=== PATIENT | female | born 1970 | race Caucasian/White ===

== ENCOUNTER 2016-09-30 17:44 | Emergency (ER) | payer BC ==
[2016-09-30 18:03] VITALS: BP 134/74
--- NOTE | 2016-09-30 18:35 | UC ---
Complaint Female HPI - HPI Summary HPI Summary: pt presents with c/o of urinary frequency and labia "itching" denies vaginal discharge or exposure to STD's c/o abdominal bloating and occasional constipation - History Of Current Complaint Chief Complaint: UCGU Stated Complaint: URINARY Time Seen by Provider: 09/30/16 18:10 Hx Obtained From: Patient Hx Last Menstrual Period: 09/17/16 ?: No Onset/Duration: Gradual Onset Timing: Intermittent Severity Initially: Mild Severity Currently: None Aggravating Factor(s): Nothing - Allergies/Home Medications Allergies/Adverse Reactions: Allergies Allergy/AdvReac Type Severity Reaction Status Date / Time Ciprofloxacin [From Cipro] Allergy Mild Heart Verified 09/30/16 17:55 palpitations Home Medications: Home Medications Metoprolol Succinate XL TAB* [Toprol XL TAB*] 1.5 tab PO BEDTIME 09/30/16 [ History Confirmed 09/30/16] PMH/Surg Hx/FS Hx/Imm Hx Previously Healthy: Yes Cardiovascular History: Other - tachycardia Other Cardiovascular History: tachycardia - Surgical History Surgical History: Yes Surgery Procedure, Year, and Place: ASD repair 1975 [facility] - Family History Known Family History: Positive: Other - [facility] for hysterectomy - Social History Lives: With Family Alcohol Use: Occasionally Substance Use Type: None Smoking Status (MU): Never Smoked Tobacco Review of Systems Constitutional: Negative Skin: Other - puritic labia majora Eyes: Negative ENT: Negative Respiratory: Negative Cardiovascular: Negative Gastrointestinal: Negative Genitourinary: Frequency, Other - perimenopausal Motor: Negative Neurovascular: Negative Musculoskeletal: Negative Neurological: Negative Psychological: Negative All Other Systems Reviewed And Are Negative: Yes Physical Exam Triage Information Reviewed: Yes Appearance: Well-Appearing Vital Signs: Initial Vital Signs Temp 98.8 F 09/30/16 17:57 Pulse 71 09/30/16 17:57 Resp 16 09/30/16 17:57 BP 134/74 09/30/16 17:57 Pulse Ox 100 09/30/16 17:57 Eye Exam: Normal Neck exam: Normal Respiratory Exam: Normal Abdominal Exam: Other Abdomen Description: Positive: Other: - "bloated" Musculoskeletal Exam: Normal Neurological Exam: Normal Psychological Exam: Normal Skin Exam: Normal Complaint Female Dx - Course Course Of Treatment: I discussed with the pt the need to follow up with her geology scientist provider carroll. Pt verbalized understanding and agreed to plan of care - Differential Dx/Diagnosis Differential Diagnosis/HQI/PQRI: Other - reid menopausal Provider Diagnoses: urinary frequency. vaginitis Discharge - Discharge Plan Condition: Stable Disposition: HOME Patient Education Materials: Vaginitis (ED) Referrals: Aranza Alba MD [Primary Care Provider] - As Soon As Possible
== END 2016-09-30 19:05 | disposition home or self-care (01) ==
LOC: UCCORT 17:44
DX: R35.0 Frequency of micturition (principal); N76.0 Acute vaginitis
CPT/HCPCS: 81003; 87480; 87510; 87660; 99211; G0463

== ENCOUNTER 2017-04-01 09:00 | Emergency (ER) | payer BC ==
[2017-04-01 09:11] VITALS: BP 113/78
--- NOTE | 2017-04-01 09:18 | UC ---
Throat Pain/Nasal Kali HPI - HPI Summary HPI Summary: 47 year old female with cough. Bilateral ear pain, sore throat, hoarse/loss of voice, "green" productive cough, and chest congestion for three to four days. Symptoms were preceded by NVD and cold symptoms. No CP or SOB. 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 PCP Parth. [ End ] - History of Current Complaint Chief Complaint: UCGeneralIllness Stated Complaint: EAR PAIN,CONGESTION Time Seen by Provider: 04/01/17 09:13 Hx Obtained From: Patient Hx Last Menstrual Period: 09/17/16 ?: No Onset/Duration: Gradual Onset Severity: Moderate Cough: Productive Associated Signs & Symptoms: Positive: Sinus Discomfort, Nasal Discharge - Allergies/Home Medications Allergies/Adverse Reactions: Allergies Allergy/AdvReac Type Severity Reaction Status Date / Time Ciprofloxacin [From Cipro] Allergy Mild Heart Verified 04/01/17 09:07 palpitations PMH/Surg Hx/FS Hx/Imm Hx Previously Healthy: Yes Cardiovascular History: Hypertension - Surgical History Surgical History: Yes Surgery Procedure, Year, and Place: ASD Repair, 1975, [place] - Family History Known Family History: Positive: Other - [facility] for hysterectomy - Social History Occupation: Employed Full-time Lives: With Family Alcohol Use: Rare Substance Use Type: None Smoking Status (MU): Never Smoked Tobacco - Immunization History Most Recent Influenza Vaccination: January 2017 Review of Systems Constitutional: Chills, Fatigue ENT: Sore Throat, Ear Ache, Nasal Discharge, Sinus Congestion, Sinus Pain/ Tenderness Respiratory: Cough Is Patient Immunocompromised?: No All Other Systems Reviewed And Are Negative: Yes Physical Exam Triage Information Reviewed: Yes Appearance: Well-Appearing, No Pain Distress, Well-Nourished Vital Signs: Initial Vital Signs Temp 98.6 F 04/01/17 09:05 Pulse 60 04/01/17 09:05 Resp 16 04/01/17 09:05 BP 113/78 04/01/17 09:05 Pulse Ox 99 04/01/17 09:05 Vital Signs Reviewed: Yes Eye Exam: Normal ENT: Positive: Nasal congestion, Nasal drainage, TM dull, Sinus tenderness - frontal b/l Neck exam: Normal Neck: Positive: 1 Respiratory Exam: Normal Cardiovascular Exam: Normal Musculoskeletal Exam: Normal Neurological Exam: Normal Psychological Exam: Normal Skin Exam: Normal Throat Pain/Nasal Course/Dx - Course Course Of Treatment: viral at this time treat with supportive care, if sx worsen or persist then can start antibiotics but aware of SE - Differential Dx/Diagnosis Differential Diagnosis/HQI/PQRI: Mononucleosis, Otitis Media, Pharyngitis, Sinusitis, Tonsillitis, URI Provider Diagnoses: SInusitis Discharge - Discharge Plan Condition: Good Disposition: HOME Prescriptions: Amoxicillin/Clavulanate TAB* [Augmentin TAB 875*] 875 mg PO BID #20 tab Patient Education Materials: Sinusitis (ED) Forms: *Work Release Referrals: Aranza Alba MD [Primary Care Provider] - 4 Days Additional Instructions: As we discussed please use flonase, claritin and netti pot for the next few days and if symptoms worsen in the next 3-4 days then at that time start antibiotics
== END 2017-04-01 09:45 | disposition home or self-care (01) ==
LOC: UCCORT 09:00
DX: J32.9 Chronic sinusitis, unspecified (principal); I10 Essential (primary) hypertension; Z88.1 Allergy status to other antibiotic agents
CPT/HCPCS: 99212; G0463

== ENCOUNTER 2017-08-31 12:00 | Emergency (ER) | payer BC ==
[2017-08-31 13:28] VITALS: BP 128/70
--- NOTE | 2017-08-31 13:37 | UC ---
UC General HPI - HPI Summary HPI Summary: pt is c/o sinus pain, congestion and now purulent drainage. no relief with nasal flush. ill for over a week, - History of Current Complaint Chief Complaint: UCGeneralIllness Stated Complaint: SINUS COMP Time Seen by Provider: 08/31/17 13:31 Hx Obtained From: Patient Hx Last Menstrual Period: 08/16/17 Onset/Duration: Gradual Onset Timing: Constant Pain Intensity: 5 Aggravating: nothing Alleviating: nothing Associated Signs & Symptoms: Positive: Headache. Negative: Fever - Allergy/Home Medications Allergies/Adverse Reactions: Allergies Allergy/AdvReac Type Severity Reaction Status Date / Time ciprofloxacin Allergy Palpitation Verified 08/31/17 13:26 s Home Medications: Home Medications Acetaminophen TAB* [Tylenol TAB*] 325 mg PO Q4H PRN 08/31/17 [History Confirmed 08/31/17] Ibuprofen TAB* [Advil TAB*] 400 mg PO Q6H PRN 08/31/17 [History Confirmed ] PMH/Surg Hx/FS Hx/Imm Hx - Additional Past Medical History Additional PMH: sinusitis, svt - Surgical History Surgical History: Yes Surgery Procedure, Year, and Place: ASD Repair, 1975, [place]. Cardiac ablation 2009 - Family History Known Family History: Positive: Other - [facility] for hysterectomy - Social History Occupation: Employed Full-time Lives: With Family Alcohol Use: Rare Substance Use Type: None Smoking Status (MU): Former Smoker Have You Smoked in the Last Year: No - Immunization History Most Recent Influenza Vaccination: January 2017 Vaccination Up to Date: Yes Review of Systems Constitutional: Negative Skin: Negative Eyes: Negative ENT: Nasal Discharge, Sinus Congestion, Sinus Pain/Tenderness Respiratory: Negative Cardiovascular: Negative Gastrointestinal: Negative Genitourinary: Negative Motor: Negative Neurovascular: Negative Musculoskeletal: Negative Neurological: Negative Psychological: Negative Is Patient Immunocompromised?: No All Other Systems Reviewed And Are Negative: Yes Physical Exam Triage Information Reviewed: Yes Appearance: Well-Appearing Vital Signs: Initial Vital Signs Temp 95.9 F 08/31/17 13:19 Pulse 73 08/31/17 13:19 Resp 17 08/31/17 13:19 BP 128/70 08/31/17 13:19 Pulse Ox 99 08/31/17 13:19 Vital Signs Reviewed: Yes Eyes: Positive: Conjunctiva Clear ENT: Positive: Pharynx normal, Nasal congestion, TMs normal, Sinus tenderness. Negative: Nasal drainage Neck: Positive: Supple, Nontender, No Lymphadenopathy Respiratory: Positive: Lungs clear, Normal breath sounds Cardiovascular: Positive: RRR, No Murmur Abdomen Description: Positive: Nontender, No Organomegaly, Soft Bowel Sounds: Positive: Present Musculoskeletal: Positive: ROM Intact Neurological: Positive: Alert Psychological: Positive: Age Appropriate Behavior Skin Exam: Normal Course/Dx - Differential Dx - Multi-Symptom Provider Diagnoses: sinusitis Discharge - Sign-Out/Discharge Documenting (check all that apply): Discharge/Admit/Transfer - Discharge Plan Condition: Stable Disposition: HOME Prescriptions: Amoxicillin/Clavulanate TAB* [Augmentin TAB 875*] 875 mg PO BID #20 tab Patient Education Materials: Sinusitis (ED) Referrals: Aranza Alba MD [Primary Care Provider] - 7 Days - Billing Disposition and Condition Condition: STABLE Disposition: HOME
== END 2017-08-31 13:46 | disposition home or self-care (01) ==
LOC: UCCORT 12:00
DX: J32.9 Chronic sinusitis, unspecified (principal); Z88.1 Allergy status to other antibiotic agents; Z87.891 Personal history of nicotine dependence
CPT/HCPCS: 99212; G0463

== ENCOUNTER 2019-07-14 07:40 | Day surgery (SDC) | payer BC ==
--- NOTE | 2019-07-06 13:15 | HP ---
Amended report to enter cosigning physician. CC: Dr. Nelly Chavarria; Dr. Cristy Brewster* ADMISSION HISTORY AND PHYSICAL: DATE OF ADMISSION: 07/14/19 ATTENDING SURGEON: Dr. Donna Costa* (MELCHOR Santana dictating). CHIEF COMPLAINT: Symptomatic cholelithiasis. HISTORY OF PRESENT ILLNESS: This is a 49-year-old generally healthy female who had an attack of right upper quadrant abdominal pain in late April 2019. This was associated with nausea and diarrhea. She did not have any vomiting. She was traveling in [place] at that time and her initial workup at that time was negative. This was preceded by chronic symptoms of right upper quadrant and right shoulder pain sometimes related to diet (i.e., coffee and high-fat foods). She self-imposed more severe dietary restrictions after her attack in April with some improvement, though she still notices ongoing discomfort in the right upper quadrant that is sometimes exacerbated by eating, even low-fat foods. She did note having life enrichment assistant colored stools during the time around her attack in April and at times also dark urine, though these have not recurred particularly since her dietary restrictions. She did have lab work done on 05/22/19 showing normal CBC and liver function tests. An ultrasound of the gallbladder was done on 05/29/19 showing some fatty liver changes. There were also noted to be multiple gallstones measuring up to 1.4 cm , but without gallbladder wall thickening or pericholecystic fluid. The common bile duct was normal. She was seen by Dr. Costa on 06/06/19. Her history and workup were reviewed and Dr. Costa felt that her symptoms were consistent with symptomatic cholelithiasis. Surgery was recommended. She was also referred for cardiology clearance with Dr. Brewster (see attached note). The patient is aware of the indications for surgery, the risks, benefits, and alternatives as well as the expected perioperative course. She would like to proceed as scheduled with laparoscopic cholecystectomy. PAST MEDICAL HISTORY: Paroxysmal supraventricular tachycardia, status post ablation in 2009 (with occasional breakthrough tachycardia; see separate note from Dr. Brewster). She is also status post open heart surgery as a child for repair of an ASD. No other significant medical problems other than mild obesity. She specifically denies history of hypertension, diabetes, asthma, other digestive problems, bleeding or clotting disorders. CURRENT MEDICATIONS: She takes no prescription medications. She does take supplemental vitamin D and vitamin C in usual doses. DRUG ALLERGIES: None. (She had experienced anaphylaxis secondary to BALSAMIC VINEGAR). FAMILY HISTORY: Positive for gallbladder disease in her mother. Family history is negative for anesthesia problems, bleeding or clotting disorders. SOCIAL HISTORY: The patient is . She has 4 grown children. 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 She smoked socially in college, but has not smoked in the past 25 to 30 years. She denies use of alcohol or recreational drugs. REVIEW OF SYSTEMS: General: No recent constitutional symptoms or acute illnesses other than described in the HPI. She does note a 15-pound weight loss over the past couple of months related to her self-imposed dietary restrictions. HEENT: No problems reported. Cardiovascular: As above. No additions. Occasional heart murmur noted. Respiratory: No chronic cough or shortness of breath. GI: As above per HPI. I did not ask her about colonoscopy. : No problems reported. 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 Endocrine: No diabetes or thyroid dysfunction. Musculoskeletal: Right shoulder pain, which seems to come in association with right upper quadrant abdominal pain. PHYSICAL EXAMINATION GENERAL: Well-nourished, mildly obese female, in no acute distress. VITAL SIGNS: Height 65 inches, weight 184 pounds, BMI 30.6. Temperature 97.8, blood pressure 104/76, pulse 84. HEENT: Pupils are equal, round, and reactive. EOMs intact. No conjunctival pallor or scleral icterus. Oropharynx: Mucous membranes moist. Teeth in good repair. No intraoral lesions. NECK: No lymphadenopathy, thyromegaly, or masses. LUNGS: Clear to auscultation. No rales or wheezes. HEART: Regular rate and rhythm. No murmur noted. BREASTS: Not examined. ABDOMEN: Soft, nontender to palpation. No palpable masses or organomegaly. GENITALIA: Not done. RECTAL: Not done. BACK: No spinous process or CVA tenderness. EXTREMITIES: No edema. NEUROLOGICAL: Grossly intact. SKIN: Warm and dry. No suspicious rashes or lesions. IMPRESSION: Symptomatic cholelithiasis. PLAN: Laparoscopic cholecystectomy. LILIBETH BASS, [place] [id number]/[facility] #: [id number] [facility] HOSPITALGhazala
[~2019-07-14 07:40] MED LIST: Acetaminophen TAB* 325 MG PO ONE; Buffered Lidocaine 1% SYRIN* 1 ML/SYRINGE INTRADERM ONE; Famotidine IV* 10 MG/ML 2 ML (20 mg) IV SLOW PU ONE; Lactated Ringers 1000 ML Bag* 1,000 ML IV SCH
[2019-07-14] MEDS ORDERED: fentaNYL* 50 MCG/ML 2 ML VIAL (100 MCG VIAL) ONE ×2 (08:11→09:36)
[2019-07-14] MEDS ORDERED: Midazolam* 1 MG/ML 5 ML VIAL (5 MG) ONE (08:11)
[2019-07-14] MEDS ORDERED: ceFAZolin 2 GM PREMIX in ORs 2 GM/50 ML BAG ONE (08:23)
[2019-07-14] MEDS ORDERED: Famotidine IV* 10 MG/ML 2 ML (20 mg) ONE (08:24)
[2019-07-14] MEDS ORDERED: Bupivacaine 0.25% SDV* 30 ML ONE (08:45)
[2019-07-14] MEDS ORDERED: Rocuronium* 10 MG/ML VIAL ONE (09:17)
[2019-07-14] MEDS ORDERED: Acetaminophen IV 1GM/100ML * 100 ML ONE (09:43)
[2019-07-14] MEDS ORDERED: Ketorolac INJ* 30 MG/ML 1 ML VIAL ONE (09:43)
[2019-07-14] MEDS ORDERED: Propofol* 10 MG/ML 20 ML BTL ONE ×2 (09:43→10:26)
[2019-07-14] MEDS ORDERED: Succinylcholine* 20 MG/ML 10 ML VIAL ONE (09:43)
[2019-07-14] MEDS ORDERED: Ondansetron INJ* 2 MG/ML VIAL ONE (09:43)
[2019-07-14] MEDS ORDERED: Lidocaine 2% PF * 5 ML VIAL ONE (09:43)
[2019-07-14] MEDS ORDERED: DiMENhydriNATE IV* 50 MG/ML VIAL ONE (09:43)
[2019-07-14] MEDS ORDERED: Dexamethasone IV* 4 MG/ML 1 ML (4 MG) ONE (09:43)
[2019-07-14] MEDS ORDERED: Naloxone* 0.4 MG/ML 1 ML VIAL IV PRN (10:13)
[2019-07-14] MEDS ORDERED: DiMENhydriNATE IV* 50 MG/ML VIAL IV PUSH PRN (10:13)
[2019-07-14] MEDS ORDERED: HYDROmorphone INJ1* 1 MG/ML SYRINGE IV PRN (10:13)
[2019-07-14] MEDS ORDERED: HYDROmorphone INJ1* 1 MG/ML SYRINGE ONE (10:18)
[2019-07-14] MEDS ORDERED: Sugammadex * 200 MG/2 ML VIAL IV PUSH ONE (10:21)
--- NOTE | 2019-07-14 11:00 | BRIEFOPN ---
Brief Operative/Procedure Note - Operation Details Pre-Op Diagnosis: Symptomatic cholelithiasis Post-Op Diagnosis: Same Procedures: Laparoscopic cholecystectomy Surgeon(s)/Proceduralists: Julissa. Oven Press Tender: Nallely Guzman NP Anesthesia: General. Dr Abad Estimated Blood Loss: Minimal Findings: Inflamed gallbladder with thickened wall Specimen(s)/Culture(s) Description: Gallbladder Complications: None. No drains.
[2019-07-14 11:52] VITALS: BP 134/72
--- NOTE | 2019-07-15 00:15 | OP ---
CC: Nelly Chavarria MD * DATE OF OPERATION: 07/14/19 - SDS DATE OF : 66 SURGEON: Donna Costa MD WIND TURBINE ELECTRICAL ENGINEER: Carolina Guzman NP ANESTHESIOLOGIST: Dr. Abad. ANESTHESIA: General. PRE-OP DIAGNOSIS: Symptomatic cholelithiasis. POST-OP DIAGNOSIS: Symptomatic cholelithiasis. OPERATIVE PROCEDURE: Laparoscopic cholecystectomy. FINDINGS: Inflamed gallbladder with thickened wall. INDICATIONS: Caroline Basurto is a 49-year-old woman who was seen in clinic for right upper quadrant abdominal pain and nausea, which was worse after eating. Ultrasound showed gallstones. I discussed with the patient that taking the gallbladder out may not resolve her symptoms, but her clinical picture does fit with symptomatic cholelithiasis. Risks were discussed including, but not limited to bleeding, infection, common bile duct injury, bowel injury. She agreed to proceed with surgery. DESCRIPTION OF PROCEDURE: The patient was brought to the OR and placed in the supine position on the OR table. SCDs were placed. The patient was warmed. Cefazolin 2 g was given. General anesthesia was administered. The abdomen was prepped and draped in the usual sterile fashion. A time-out was called confirming the patient's name, date of , and procedure. A supraumbilical curvilinear incision was made with a 15-blade scalpel. The incision was taken down to the fascia with blunt dissection. The fascia was elevated with 2 Sanya clamps and then incised transversely with a 15 blade. The peritoneum was grasped with 2 Celeste clamps. The peritoneum was opened with Metzenbaum scissors. A 12 mm trocar was inserted into the abdomen. Pneumoperitoneum to 15 mmHg was achieved. The camera was placed into the port. A 5 mm trocar was placed under direct visualization in the epigastrium. Another 5 mm trocar was placed in the lateral right upper quadrant and a third 5 mm trocar was placed in the right upper quadrant at the midclavicular line. Both were placed under direct visualization. The dome of the gallbladder was elevated cephalad. The peritoneum and omentum was dissected off of the gallbladder wall using blunt dissection and electrocautery. There was a lymph node overlying the cystic duct which was dissected off of the gallbladder wall and cystic duct. The peritoneum over the cystic duct was dissected away using electrocautery. The liver could be seen behind the gallbladder and the cystic duct. The duct was the only structure coming off of the gallbladder. The cystic duct was clipped and divided sharply between the 2 clips. The cystic artery was not seen. The gallbladder was then taken off of the liver using electrocautery. The gallbladder was placed into a specimen bag and removed from the abdomen. The liver bed was examined and there was good hemostasis. The cystic duct stump was examined and the clips were in good position. The 5 mm trocars were removed under direct visualization. The 12 mm trocar was removed. The fascia was closed with interrupted 0 Vicryl sutures. Marcaine 0.25% was injected into all of the incisions. The skin at the umbilical incision was closed with a running 4-0 Monocryl. The 5 mm trocar sites was closed with interrupted 4-0 Monocryl. The Steri-Strips were placed over all the incisions. Needle and sponge counts were correct. The patient was extubated and brought to Recovery in stable condition. [id number]/[facility] #: [id number] [facility]ENTERGh[facility]ala
== END 2019-07-14 11:54 | disposition home or self-care (01) ==
LOC: OR 07:40
PROVIDERS: ATTEND Surgery Surgical Critical Care
DX: K80.10 Calculus of gallbladder with chronic cholecystitis without obstruction (principal); I47.1 Supraventricular tachycardia; Z87.891 Personal history of nicotine dependence; Z88.1 Allergy status to other antibiotic agents; Z91.018 Allergy to other foods
CPT/HCPCS: 81025; 88304; J0330; J0690; J1100; J1170; J1240; J1885; J2250; J2405; J2704; J3010; J3490

== ENCOUNTER 2019-07-17 09:02 | Emergency (ER) | payer BC ==
--- OUTSIDE RECORDS SUMMARY | 2019-07-17 09:27 | XMS REPORT | Continuity of Care Document ---
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 Onset: 06/01/2014 Ostium secundum type atrial septal defect Cristy Brewster M.D. Onset: 2014 Anaphylaxis Nelly Chavarria M.D., FACP Onset: 05/18/2019 Social History Type Date Description Comments Sex Unknown ETOH Use Occasionally consumes wine Tobacco Use Start: Unknown End: Patient is a former social smoker in Unknown smoker college Recreational Drug Use Denies Drug Use Smoking Status Reviewed: 06/06/19 Patient is a former social smoker in smoker college Exercise Type/Frequency Exercises sporadically walking in summer time Allergies, Adverse Reactions, Alerts Active Allergies Reaction Severity Comments Date NKDA 10/09/2013 Balsamic Vinegar Anaphylaxis 06/06/2019 Medications Active Medications SIG Qnty Indications Ordering Provider Date Tylenol as needed for Unknown headache Pepcid take one Unknown 20mg Tablets capsule/tablet daily by mouth prn Vitamin D (500 units) daily Unknown 1000Unit Tablets Vitamin C 1 by mouth every Unknown 1000mg day Tablets Immunizations Description No Information Available Vital Signs Date Vital Result Comment 06/06/2019 12:55pm Height 65 inches 5'5" Weight 189.00 lb Heart Rate 72 /min BP Systolic Sitting 102 mmHg BP Diastolic Sitting 76 mmHg Respiratory Rate 16 /min Body Temperature 97.8 F BMI (Body Mass Index) 31.4 kg/m2 05/18/2019 2:32pm Height 65 inches 5'5" Weight 189.00 lb Heart Rate 86 /min BP Systolic Sitting 134 mmHg BP Diastolic Sitting 85 mmHg O2 % BldC Oximetry 98 % BMI (Body Mass Index) 31.4 kg/m2 Results Test Acquired Date Facility Test Result H/L Range Note Lipid Profile 05/22/2019 [facility] Triglycerides 100 mg/dL 1 (Trig/Chol/HDL) [place] [address] [phone] Cholesterol 149 mg/dL 2 HDL Cholesterol 48.2 mg/dL 3 LDL Cholesterol 81 mg/dL 4 Comp Metabolic 05/22/2019 [facility] Sodium 139 mmol/L Normal 135-145 [place] [address] [phone] Potassium 3.9 mmol/L Normal 3.5-5.0 Chloride 105 mmol/L Normal 101-111 Co2 Carbon Dioxide 26 mmol/L Normal 22-32 Anion Gap 8 mmol/L Normal 2-11 Glucose 87 mg/dL Normal 70-100 Blood Urea Nitrogen 8 mg/dL Normal 6-24 Creatinine 0.83 mg/dL Normal 0.51-0.95 BUN/Creatinine Ratio 9.6 Normal 8-20 Calcium 8.9 mg/dL Normal 8.6-10.3 Total Protein 6.4 g/dL Normal 6.4-8.9 Albumin 4.0 g/dL Normal 3.2-5.2 Globulin 2.4 g/dL Normal 2-4 Albumin/Globulin Ratio 1.7 Normal 1-3 Total Bilirubin 0.50 mg/dL Normal 0.2-1.0 Alkaline Phosphatase 50 U/L Normal 34-104 Alt 19 U/L Normal 7-52 Ast 18 U/L Normal 13-39 Egfr Non- 72.5 >60 Egfr 87.7 >60 5 Laboratory 05/22/2019 [facility] TSH (Thyroid 2.94 Normal 0.34 -5.60 6 test finding Stim Horm) mcIU/[place] [address] [phone] CBC Auto Diff 05/22/2019 [facility] White Blood 5.6 10^3/uL Normal 3.5-10.8 [place] [address] [phone] Red Blood Count 4.64 10^6/uL Normal 3.70-4.87 Hemoglobin 14.5 g/dL Normal 12.0-16.0 Hematocrit 41 % Normal 35-47 Mean Corpuscular Volume 89 fL Normal 80-97 Mean Corpuscular Hemoglobin 31 pg Normal 27-31 Mean Corpuscular HGB Conc 35 g/dL Normal 31-36 Red Cell Distribution Width 14 % Normal 10-15 Platelet Count 333 10^3/uL Normal 150-450 Mean Platelet Volume 9.0 fL Normal 7.4-10.4 Abs Neutrophils 3.6 10^3/uL Normal 1.5-7.7 Abs Lymphocytes 1.4 10^3/uL Normal 1.0-4.8 Abs Monocytes 0.5 10^3/uL Normal 0-0.8 Abs Eosinophils 0.1 10^3/uL Normal 0-0.6 Abs Basophils 0.1 10^3/uL Normal 0-0.2 Abs Nucleated RBC 0.0 10^3/uL Granulocyte % 63.7 % Lymphocyte % 24.7 % Monocyte % 8.4 % Eosinophil % 1.8 % Basophil % 1.4 % Nucleated Red Blood Cells % 0.2 1 Desirable: <150 Borderline High: 150-199 High: 200-499 Very High: >500 2 Desirable: <200 Borderline High: 200-239 High: >239 3 Low: <40 Desirable: 40-60 High: >60 4 Desirable: <100 Near Optimal: 100-129 Borderline High: 130-159 High: 160-189 Very High: >189 5 Because ethnic data is not always readily available, this report includes an eGFR for both -Americans and non- Americans. The National Kidney Disease Education Program (NKDEP) does not endorse the use of the MDRD equation for patients that are not between the ages of 18 and 70, are , have extremes of body size, muscle mass, or nutritional status, or are non- or non-. According to the National Kidney Foundation, irrespective of diagnosis, the stage of the disease is based on the level of kidney function: Stage Description GFR(mL/min/1.73 m(2)) 1 Kidney damage with normal or decreased GFR 90 2 Kidney damage with mild decrease in GFR 60-89 3 Moderate decrease in GFR 30-59 4 Severe decrease in GFR 15-29 5 Kidney failure <15 (or dialysis) 6 FASTING 10 HOUR Procedures Description No Information Available Medical Devices Description No Information Available Encounters Type Date Location Provider Dx Diagnosis Office Visit 05/18/2019 [facility] Nelly Aura, Z00.00 Encntr for general 2:30p Medicine - Mjob Amy, FACP adult medical exam w/o abnormal findings N95.1 Menopausal and female climacteric states Z87.892 Personal history of anaphylaxis I47.1 Supraventricular tachycardia Z13.220 Encounter for screening for lipoid disorders R68.81 Early satiety R63.4 Abnormal weight loss Office Visit 12/30/2018 [place] Cristy Brewster, I47.1 Supraventricular 1:10p [facility] tachycardia [employer] Q21.1 Atrial septal defect T78.00xD Anaphylactic reaction due to unspecified food, subs encntr Assessments Date Code Description Provider 06/06/2019 K80.20 Calculus of gallbladder without Donna Costa MD cholecystitis without obstruction 05/18/2019 Z00.00 Encounter for general adult medical Nelly Chavarria M.D., FACP examination without abnormal findings 05/18/2019 N95.1 Menopausal and female climacteric states Nelly Chavarria M.D. , FACP 05/18/2019 Z87.892 Personal history of anaphylaxis Nelly Chavarria M.D., FACP 05/18/2019 I47.1 Supraventricular tachycardia Nelly Chavarria M.D., FACP 05/18/2019 Z13.220 Encounter for screening for lipoid Nelly Chavarria M.D., FACP disorders 05/18/2019 R68.81 Early satiety Nelly Chavarria M.D., FACP 05/18/2019 R63.4 Abnormal weight loss Nelly Chavarria M.D., FACP 12/30/2018 I47.1 Supraventricular tachycardia Cristy Brewster M.D. 12/30/2018 Q21.1 Atrial septal defect Cristy Brewster M.D. 12/30/2018 T78.00xD Anaphylactic reaction due to unspecified Cristy Brewster M.D. food, subsequent encounter Plan of Treatment Future Appointment(s):07/10/2019 8:30 am - Nelly Chavarria M.D., FACP at [facility] Internal Medicine - [facility]cm[facility]06/06/2019 - Donna Costa MDK80.20 Calculus of gallbladder without cholecystitis without obstructionReferral:Cristy Brewster MD , Cardiovsclr DiseaseInstructions:See Dr Brewster with cardiology for medical clearance. Will schedule surgery after cardiology appointment. Avoid foods that aggravate symptoms. Call the clinic or go to the emergency room if you developsevere pain or fevers/chills. Functional Status Description No Information Available Mental Status Description No Information Available Referrals Refer to Reason for Referral Status Appt Date Cristy Brewster MD Pre-op for lap cholecystectomy. H/o SVT. Created [address] [place] [address] [phone] Mary Larsen MD atypical GI symptoms, sono shows cholelithiasis. Created [address] [place], [place] [phone] Yany Thrasher M.D. screening colonoscopy and new symptoms of Sent early satiety [address] [place] [address] [phone]
--- OUTSIDE RECORDS SUMMARY | 2019-07-17 09:27 | XMS REPORT | Continuity of Care Document ---
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 Onset: 06/01/2014 Ostium secundum type atrial septal defect Cristy Brewster M.D. Onset: 2014 Anaphylaxis Nelly Chavarria M.D., FACP Onset: 05/18/2019 Social History Type Date Description Comments Sex Unknown ETOH Use Denies alcohol use Tobacco Use Start: Unknown End: Patient is a former social smoker in Unknown smoker college Recreational Drug Use Denies Drug Use Smoking Status Reviewed: 07/06/19 Patient is a former social smoker in smoker college Exercise Type/Frequency Exercises sporadically walking in summer time Allergies, Adverse Reactions, Alerts Active Allergies Reaction Severity Comments Date NKDA 10/09/2013 Balsamic Vinegar Anaphylaxis 06/06/2019 Medications Active Medications SIG Qnty Indications Ordering Provider Date [address] 1 tablet by mouth 6tabs K80.20 Martinez S. 07/06/2019 5-325mg Tablets every 4-6 hours as MD Froylan needed for moderately severe pain Tylenol as needed for Unknown headache Vitamin D (500 units) daily Unknown 1000Unit Tablets Vitamin C 1 by mouth every Unknown 1000mg day Tablets Immunizations Description No Information Available Vital Signs Date Vital Result Comment 07/06/2019 10:30am Height 65 inches 5'5" Weight 184.00 lb Heart Rate 84 /min BP Systolic Sitting 104 mmHg BP Diastolic Sitting 76 mmHg Respiratory Rate 16 /min Body Temperature 97.8 F BMI (Body Mass Index) 30.6 kg/m2 07/04/2019 11:48am Height 65 inches 5'5" Weight 184.00 lb without shoes Heart Rate 73 /min BP Systolic Sitting 108 mmHg LA BP Diastolic Sitting 78 mmHg LA BP Systolic Standing 102 mmHg LA BP Diastolic Standing 74 mmHg LA BMI (Body Mass Index) 30.6 kg/m2 Ejection Fraction 66% Echo 12/13/12 Results Test Acquired Date Facility Test Result H/L Range Note Lipid Profile 05/22/2019 [facility] Triglycerides 100 mg/dL 1 (Trig/Chol/HDL) [address] [place] [address] [phone] Cholesterol 149 mg/dL 2 HDL Cholesterol 48.2 mg/dL 3 LDL Cholesterol 81 mg/dL 4 Comp Metabolic 05/22/2019 [facility] Sodium 139 mmol/L Normal 135-[address] [place] [address] [phone] Potassium 3.9 mmol/L Normal 3.5-5.0 Chloride 105 [...] >60 Egfr 87.7 >60 5 Laboratory 05/22/2019 [facility] TSH (Thyroid 2.94 Normal 0.34 -5.60 6 test finding [address] Stim Horm) mcIU/[place] [address] [phone] CBC Auto Diff 05/22/2019 [facility] White Blood 5.6 10^3/uL Normal 3.5-10.[address] [place] [address] [phone] Red Blood Count 4.64 10^6/uL Normal 3.70-4.87 [...] (or dialysis) 6 FASTING 10 HOUR Procedures Date Code Description Status 07/04/2019 97863 EKG Tracing & Interpretation Completed Medical Devices Description No Information Available Encounters Type Date Location Provider Dx Diagnosis Office Visit 07/04/2019 [facility] Cristy Brewster, Z01.810 Encounter for 11:45a Of [facility] Reyes preprocedural cardiovascular examination K80.20 Calculus of gallbladder w/o cholecystitis w/o obstruction I47.1 Supraventricular tachycardia Q21.1 Atrial septal defect Office Visit 06/06/2019 1:00p Surgical Donna Costa K80.20 [facility] gallbladder w/o cholecystitis w/o obstruction Office Visit 05/18/2019 2:30p [facility] Internal Nellyphilly Chavarria, Z00.00 Encntr for general Medicine - [facility] Amy, FACP adult medical exam w/o abnormal findings N95.1 Menopausal and female climacteric states Z87.892 Personal history of anaphylaxis I47.1 Supraventricular tachycardia Z13.220 Encounter for screening for lipoid disorders R68.81 Early satiety R63.4 Abnormal weight loss Assessments Date Code Description Provider 07/10/2019 Z13.220 Encounter for screening for lipoid Nelly Chavarria M.D., FACP disorders 07/10/2019 K80.20 Calculus of gallbladder without Nelly Chavarria M.D., FACP cholecystitis without obstruction 07/06/2019 K80.20 Calculus of gallbladder without MELCHOR Melgar cholecystitis without obstruction 07/06/2019 Z01.818 Encounter for other preprocedural MELCHOR Melgar examination 07/04/2019 K80.20 Calculus of gallbladder without Donna Costa MD cholecystitis without obstruction 07/04/2019 Z01.810 Encounter for preprocedural cardiovascular Cristy Brewster M.D. examination 07/04/2019 K80.20 Calculus of gallbladder without Cristy Brewster M.D. cholecystitis without obstruction 07/04/2019 I47.1 Supraventricular tachycardia Cristy Brewster M.D. 07/04/2019 Q21.1 Atrial septal defect Crsity Brewster M.D. 06/06/2019 K80.20 Calculus of gallbladder without Donna Costa MD cholecystitis without obstruction 05/18/2019 Z00.00 Encounter for general adult medical Nelly Chavarria M.D., [facility] examination without abnormal findings 05/18/2019 N95.1 Menopausal and female climacteric states Nelly Chavarria M.D. , [facility] 05/18/2019 Z87.892 Personal history of anaphylaxis Nelly Chavarria M.D., [facility] 05/18/2019 I47.1 Supraventricular tachycardia N[facility] M.D., [facility] 05/18/2019 Z13.220 Encounter for screening for lipoid Nelly Chavarria M.D., [facility] disorders 05/18/2019 R68.81 Early satiety Nelly Chavarria M.D., [facility] 05/18/2019 R63.4 Abnormal weight loss Nelly Chavarria M.D., [facility] Plan of Treatment Future Appointment(s):07/14/2019 9:15 am - Carolina Guzman NP at [facility]07/24/2019 10:30 am - Pj Hobbs PA-C at [facility]07/14/2019 9:15 am - Donna Costa MD at [facility]07/10/2019 - Nelly Chavarria M.D., FACPZ13.220 Encounter for screening for lipoid disordersComments:CHOLESTEROL SCREENING:You recently had a fasting lipid profile and a glucose level. The results wereexcellent: your triglycerides were 100 (ideally, <150), total cholesterol was 149 (<200). Thefraction of HDL ("good cholesterol") was 48 (best >60) and the fraction of LDL ("bad cholesterol") was very low at 81 (should be <100).Additionally, your fasting glucose was [id number] Calculus of gallbladder without cholecystitis without obstructionComments:GALLSTONES: Today we talked about the role of the gallbladder.I understand that you are scheduled for laparoscopic cholestectomy on 3/13. Functional Status Description No Information Available Mental Status Description No Information Available Referrals Refer to Reason for Referral Status Appt Date Cristy Brewster MD Pre-op for lap cholecystectomy. H/o SVT. Closed 07/04/[address] [place], [place] [address] [phone] Mary Larsen MD atypical GI symptoms, sono shows cholelithiasis. Sent 2019 [address] [place], [place] [phone] [phone] Yany Thrasher M.D. screening colonoscopy and new symptoms of Sent early satiety Pt not scheduled yet 07/06/[address] [place] [address] [phone]
--- OUTSIDE RECORDS SUMMARY | 2019-07-17 09:27 | XMS REPORT | Continuity of Care Document ---
:1970 External Reference #:[id number] Author Name Cristy Brewster M.D. (transmitted by agent of provider Tiana Henry) Address 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 Development Specialist [phone] Problems Active Problems Provider Date Paroxysmal supraventricular [...] Medications SIG Qnty Indications Ordering Provider Date [place] 1 tablet by mouth 6tabs K80.20 Martinez [...] Result H/L Range Note Lipid Profile 05/22/2019 [facility] Triglycerides 100 mg/dL 1 (Trig/Chol/HDL) [address] [place] [address] [phone] Cholesterol 149 mg/dL 2 HDL Cholesterol 48.2 mg/dL 3 LDL Cholesterol 81 mg/dL 4 Comp Metabolic 05/22/2019 [facility] Sodium 139 mmol/L Normal 135-[address] [place] [address] [phone] Potassium 3.9 mmol/L Normal 3.5-5.0 Chloride 105 [...] >60 Egfr 87.7 >60 5 Laboratory 05/22/2019 [facility] TSH (Thyroid 2.94 Normal 0.34 -5.60 6 test finding [address] Stim Horm) mcIU/[place] [address] [phone] CBC Auto Diff 05/22/2019 [facility] White Blood 5.6 10^3/uL Normal 3.5-10.[address] [place] [address] [phone] Red Blood Count 4.64 10^6/uL Normal 3.70-4.87 [...] HOUR Procedures Date Code Description Status 07/04/2019 53249 EKG Tracing & Interpretation Completed Medical Devices Description No Information Available Encounters Type Date Location Provider Dx Diagnosis Office Visit 07/04/2019 [facility] Cristy Brewster, Z01.810 Encounter for 11:45a Of Gloria Reyes preprocedural cardiovascular examination K80.20 Calculus of gallbladder w/o cholecystitis w/o obstruction I47.1 Supraventricular tachycardia Q21.1 Atrial septal defect Office Visit 06/06/2019 1:00p Surgical Donna Costa K80.20 [facility] gall[facility] w/o cholecystitis w/o obstruction Office Visit 05/18/2019 2:30p [facility] Internal Nellyphilly Chavarria, Z00.00 Encntr for [...] Brewster M.D. 07/04/2019 Q21.1 Atrial septal defect Cristy Brewster M.D. 06/06/2019 K80.20 Calculus of gallbladder without Donna Costa MD cholecystitis without obstruction 05/18/2019 Z00.00 Encounter for general adult medical Nelly Chavarria M.D., [facility] examination without abnormal findings 05/18/2019 N95.1 Menopausal and female climacteric states Nelly Chavarria M.D. , [facility] 05/18/2019 Z87.892 Personal history of anaphylaxis Nelly Chavarria M.D., [facility] 05/18/2019 I47.1 Supraventricular tachycardia Nelly Chavarria M.D., [facility] 05/18/2019 Z13.220 Encounter for screening for lipoid Nelly Chavarria M.D., [facility] disorders 05/18/2019 R68.81 Early satiety Nelly Chavarria M.D., [facility] 05/18/2019 R63.4 Abnormal weight loss Nelly Chavarria M.D., [facility] Plan of Treatment Future Appointment(s):07/14/2019 9:15 am - Carolina Guzman NP at [facility]07/24/2019 10:30 am - Pj Hobbs PA-C at [facility]07/14/2019 9:15 am - Donna Costa MD at [facility]07/10/2019 - [facility] Encounter for screening for lipoid disordersComments:CHOLESTEROL SCREENING:You recently had a fasting lipid profile and a glucose level. The results wereexcellent: your triglycerides were 100 (ideally, <150), total cholesterol was 149 (<200). Thefraction of HDL ("good cholesterol") was 48 (best >60) and the fraction of LDL ("bad cholesterol") was very low at 81 (should be <100).Additionally, your fasting glucose was [id number] Calculus of gallbladder without cholecystitis without obstructionComments:GALLSTONES: Today we talked about the role of the gallbladder.I understand that you are scheduled for laparoscopic cholestectomy on 07/13. Functional Status Description No Information Available Mental Status Description No Information Available Referrals Refer to Reason for Referral Status Appt Date Cristy Brewster MD Pre-op for lap cholecystectomy. H/o SVT. Closed 07/04/[address] [place] [address] [phone] Mary Larsen MD atypical GI symptoms, sono shows cholelithiasis. Sent 2019 [address] [place], [place] [phone] Yany Thrasher M.D. screening colonoscopy and new symptoms of Sent early satiety Pt not scheduled yet 07/06/[address] [place] [address] [phone]
--- OUTSIDE RECORDS SUMMARY | 2019-07-17 09:27 | XMS REPORT | Continuity of Care Document ---
:1970 External Reference #:[id number] Author Name Cristy Brewster M.D. (transmitted by agent of provider Lisa Carpenter) Address 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 [phone] Problems Active Problems Provider Date Paroxysmal supraventricular [...] Use Denies Drug Use Smoking Status Reviewed: 07/04/19 Patient is a former social smoker in smoker college Exercise Type/Frequency Exercises sporadically walking in summer time Allergies, Adverse Reactions, Alerts Active Allergies Reaction Severity Comments Date NKDA 10/09/2013 Balsamic Vinegar Anaphylaxis 06/06/2019 Medications Active Medications SIG Qnty Indications Ordering Provider Date Tylenol as needed for Unknown headache Vitamin D (500 units) daily Unknown 1000Unit Tablets Vitamin C 1 by mouth every Unknown 1000mg day Tablets Immunizations Description No Information Available Vital Signs Date Vital Result Comment 07/04/2019 11:48am Height 65 inches 5'5" Weight 184.00 lb without shoes Heart Rate 73 /min BP Systolic Sitting 108 mmHg LA BP Diastolic Sitting 78 mmHg LA BP Systolic Standing 102 mmHg LA BP Diastolic Standing 74 mmHg LA BMI (Body Mass Index) 30.6 kg/m2 Ejection Fraction 66% Echo 12/13/12 06/06/2019 12:55pm Height 65 inches 5'5" Weight 189.00 lb Heart Rate 72 /min BP Systolic Sitting 102 mmHg BP Diastolic Sitting 76 mmHg Respiratory Rate 16 /min Body Temperature 97.8 F BMI (Body Mass Index) 31.4 kg/m2 Results Test Acquired Date Facility Test Result H/L Range Note Lipid Profile 05/22/2019 [facility] Triglycerides 100 mg/dL 1 (Trig/Chol/HDL) [place] [address] [phone] Cholesterol 149 mg/dL 2 HDL Cholesterol 48.2 mg/dL 3 LDL Cholesterol 81 mg/dL 4 Comp Metabolic 05/22/2019 [facility] Sodium 139 mmol/L Normal 135-145 [place] [address] [phone] Potassium 3.9 mmol/L Normal 3.5-5.0 Chloride 105 [...] >60 Egfr 87.7 >60 5 Laboratory 05/22/2019 [facility] TSH (Thyroid 2.94 Normal 0.34 -5.60 6 test finding Stim Horm) mcIU/[place] [address] [phone] CBC Auto Diff 05/22/2019 [facility] White Blood 5.6 10^3/uL Normal 3.5-10.8 [place] [address] [phone] Red Blood Count 4.64 10^6/uL Normal 3.70-4.87 [...] HOUR Procedures Date Code Description Status 07/04/2019 78553 EKG Tracing & Interpretation Completed Medical Devices Description No Information Available Encounters Type Date Location Provider Dx Diagnosis Office Visit 06/06/2019 Surgical Donna Costa MD K80.20 Calculus of 1:00p [facility] gallbladder w/o cholecystitis w/o obstruction Office Visit 05/18/2019 [facility] Internal Nelly Chavarria, Z00.00 Encntr for general 2:30p Medicine - Mjob Amy, FACP adult medical exam w/o abnormal findings N95.1 Menopausal and female climacteric states Z87.892 Personal history of anaphylaxis I47.1 Supraventricular tachycardia Z13.220 Encounter for screening for lipoid disorders R68.81 Early satiety R63.4 Abnormal weight loss Assessments Date Code Description Provider 07/04/2019 Z01.810 Encounter for preprocedural cardiovascular Cristy [...] Abnormal weight loss Nelly Chavarria M.D., FACP Plan of Treatment Future Appointment(s):07/10/2019 8:30 am - Nelly Chavarria M.D., FACP [facility] Cristy Brewster M.D.Z01.810 Encounter for preprocedural cardiovascular examinationComments:ECG is stable, mild non specific changes.You are in good shape for your surgery, no additional cardiac testing is needed.Follow up:Let sx know pt can be scheduled any time, pt wishes to do soon if able.`K80.20 Calculus of gallbladder without cholecystitis without gzgaoqqpdkuZ75.1 Supraventricular tachycardiaComments:Rare brief episodes by hx since BB stopped.Follow up:Keep regular annual OVRecommendations: If SVT reid op, calcium channel blockers (Cardizem) could be used. IV Beta faith an option as well.Q21.1 Atrial septal defectComments:s/p distant repair. Functional Status Description No Information Available Mental Status Description No Information Available Referrals Refer to Dr Reason for Referral Status Appt Date Cristy Brewster MD Pre-op for lap cholecystectomy. H/o SVT. Scheduled [address] [place] [address] [phone] Mary Larsen MD atypical GI symptoms, sono shows cholelithiasis. Sent 2019 [address] [place], [place] [address] [phone] Yany Thrasher M.D. screening colonoscopy and new symptoms of Sent early satiety [address] [place] [address] [phone]
--- OUTSIDE RECORDS SUMMARY | 2019-07-17 09:27 | XMS REPORT | Continuity of Care Document ---
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 Onset: 06/01/2014 Ostium secundum type atrial septal defect Cristy Brewster M.D. Onset: 2014 Social History Type Date Description Comments Sex Unknown ETOH Use Occasionally consumes wine Tobacco Use Start: Unknown End: Patient is a former social smoker in Unknown smoker college Recreational Drug Use Denies Drug Use Smoking Status Reviewed: 05/18/19 Patient is a former social smoker in smoker college Exercise Type/Frequency Exercises sporadically walking in summer time Allergies, Adverse Reactions, Alerts Description No Known Drug Allergies Medications Active Medications SIG Qnty Indications Ordering Provider Date Tylenol as needed for Unknown headache Pepcid take one Unknown 20mg Tablets capsule/tablet daily by mouth prn Vitamin D prn Unknown 1000Unit Tablets Vitamin C 1 by mouth every Unknown 1000mg day Tablets Immunizations Description No Information Available Vital Signs Date Vital Result Comment 05/18/2019 2:32pm Height 65 inches 5'5" Weight 189.00 lb Heart Rate 86 /min BP Systolic Sitting 134 mmHg BP Diastolic Sitting 85 mmHg O2 % BldC Oximetry 98 % BMI (Body Mass Index) 31.4 kg/m2 12/30/2018 12:48pm Height 65 inches 5'5" Weight 205.00 lb Heart Rate 76 /min BP Systolic Sitting 132 mmHg Rue reg cuff BP Diastolic Sitting 84 mmHg Rue reg cuff BP Systolic Standing 128 mmHg Rue reg cuff BP Diastolic Standing 88 mmHg Rue reg cuff Respiratory Rate 13 /min BMI (Body Mass Index) 34.1 kg/m2 Ejection Fraction 66% Procedures Description No Information Available Medical Devices Description No Information Available Encounters Type Date Location Provider Dx Diagnosis Office Visit 12/30/2018 [facility] Cristy Brewster, I47.1 Supraventricular 1:10p Of Gloria Reyes tachycardia Q21.1 Atrial septal defect T78.00xD Anaphylactic reaction due to unspecified food, subs encntr Assessments Date Code Description Provider 05/18/2019 Z00.00 Encounter for general adult medical Nelly Chavarria M.D., [facility] examination without abnormal findings 05/18/2019 K58.8 Other irritable bowel syndrome Nelly Chavarria M.D., FACP 05/18/2019 N95.1 Menopausal and female climacteric states Nelly Chavarria M.D. 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 12/30/2018 Q21.1 Atrial septal defect Cristy Brewster M.D. 12/30/2018 T78.00xD Anaphylactic reaction due to unspecified Cristy Brewster M.D. food, subsequent encounter Plan of Treatment Future Appointment(s):07/10/2019 8:30 am - Nelly Chavarria M.D., FACP [facility] Nelly Chavarria M.D., FACPZ00.00 Encounter for general adult medical examination without abnormal findingsComments:GENERAL PHYSICAL EXAM: You are up to date with your vaccinations. I do not have a record of your last tetanus/pertussis booster. You report having received a flu shot this past season.I recommend regular screening mammography (you think your last mammogram was in 2018).You are due for a colonoscopy now.I think that it is a good idea to have an Advance Directive on file here.We reviewed healthy lifestyle practices, specifically, strategies to maintain a durable ideal body weight and an aerobic exercise routine.K58.8 Other irritable bowel syndromeComments:BLOATING:I suspect that this symptom is due to mild bowel irritability. We talked about dietary triggers (FODMAPS) and the intestinal microbiome.Please let me know if this does not fully resolve or becomes more prominent. Your symptoms are not exactly consistent with gallbladder, but we talked about excluding this with an abdominal ultrasound.Referral:Yany Thrasher M.D., Single Specialty LfwwmC52.1 Menopausal and female climacteric statesComments:PERIMENOPAUSE:I understand that you have had occasional PM sweats and menstrual irregularity, but that overall you are not substantially symptomatic. You should be taking calcium/Vitamin D (1200mg/1000IU) supplementation daily and doing weight bearing exercises. Today we talked about the various strategies to palliate vasomotor symptoms. Estrogen is really the only medication that directly addresses the issue. We discussed other medications like antidepressants (venlafaxine) and antihypertensives ( clonidine).Z87.892 Personal history of anaphylaxisComments:ANAPHYLAXIS:You might benefit from taking an H2 faith like Pepcid. You state that you carry an Epipen.I47.1 Supraventricular tachycardiaComments:SVT:I understand that you are generally well controlled and are followed by Dr. Brewster.Z13.220 Encounter for screening for lipoid disordersComments:CHOLESTEROL SCREENING:It is time to check a fasting lipid profile and a glucose level.Follow up:2 months Functional Status Description No Information Available Mental Status Description No Information Available Referrals Refer to Reason for Referral Status Appt Date Yany Thrasher M.D. screening colonoscopy and new symptoms Created of early satiety [address] [place] [address] [phone]
[2019-07-17 09:41] VITALS: BP 121/63
--- NOTE | 2019-07-17 10:54 | UC ---
General HPI - HPI Summary HPI Summary: 49 YO WF here with her for coronavirus screening. Pt is s/p cholecystectomy3 days ago recovering well but received phonecall from surgical office to get "tested" for coronavirus for NO apparent reason. Pt is aymptomatic , denies f/c/cough/SOB, not any meds no chronic illnesses. - History of Current Complaint Chief Complaint: UCGeneralIllness Stated Complaint: POSSIBLE EXPOSURE Time Seen by Provider: 07/17/19 09:14 Hx Obtained From: Patient Hx Last Menstrual Period: 08/16/17 Onset/Duration: Other - NO SX Pain Intensity: 4 - Allergy/Home Medications Allergies/Adverse Reactions: Allergies Allergy/AdvReac Type Severity Reaction Status Date / Time ciprofloxacin Allergy Mild Palpitation Verified 07/17/19 09:35 s Balsamic vinegar Allergy Severe Anaphylatic Uncoded 07/17/19 09:35 Shock Home Medications: Home Medications HYDROcodone/ACETAMIN 5-325 MG* [[place] 5-325 TAB*] 1 tab PO Q4H PRN 07/17/19 [ History Confirmed 07/17/19] PMH/Surg Hx/FS Hx/Imm Hx - Additional Past Medical History Additional PMH: cholecystitis - Surgical History Surgical History: Yes Surgery Procedure, Year, and Place: ASD Repair, 1975, [place]. Cardiac Ablation 2009. choly - Family History Known Family History: Positive: Other - [facility] for hysterectomy, Non-Contributory - Social History Alcohol Use: None Substance Use Type: None Smoking Status (MU): Former Smoker Type: Cigarettes Amount Used/How Often: 2612-6143 Socially while in college Length of Time of Smoking/Using Tobacco: 3 years Have You Smoked in the Last Year: No When Did the Patient Quit Smoking/Using Tobacco: 1990 - Immunization History Most Recent Influenza Vaccination: January 2017 Vaccination Up to Date: Yes Review of Systems All Other Systems Reviewed And Are Negative: Yes Constitutional: Positive: Negative Skin: Positive: Negative ENT: Positive: Negative Respiratory: Positive: Negative Cardiovascular: Positive: Negative Gastrointestinal: Positive: Negative Genitourinary: Positive: Negative Neurovascular: Positive: Negative Musculoskeletal: Positive: Negative Neurological/Mental Status: Positive: Negative Is Patient Immunocompromised?: Yes Physical Exam - Summary Physical Exam Summary: Vital Signs Reviewed: Yes Appearance: Positive: No Pain Distress Skin: Positive: Warm Head/Face: Positive: Normal Head/Face Inspection Eyes: Positive: Normal ENT: Positive: Normal ENT inspection Dental: Negative: Cervical Lymphadenopathy Neck: Positive: Supple Respiratory/Lung Sounds: Positive: Clear to Auscultation Cardiovascular: Positive: Normal, RRR, S1, S2 Abdomen Description: Positive: Nontender Musculoskeletal: Positive: Normal Neurological: Positive: Normal Psychiatric: Positive: Normal Triage Information Reviewed: Yes Vital Signs: Initial Vital Signs Temp 36.9 C 07/17/19 09:35 Pulse 88 07/17/19 09:35 Resp 16 07/17/19 09:35 BP 121/63 07/17/19 09:35 Pulse Ox 100 07/17/19 09:35 Course/Dx - Course Course Of Treatment: pt is has NO exposure hx, NO sx, NO travel, testing for COVID 19 NOT indicated at this time. If sx develop we can re-assess and educated/advised pt to return if sx develop or if exposed. - Diagnoses Provider Diagnosis: Encounter for medical screening examination Discharge ED - Sign-Out/Discharge Documenting (check all that apply): Patient Departure All imaging exams completed and their final reports reviewed: No Studies - Discharge Plan Condition: Stable Disposition: HOME Referrals: Nelly Chavarria MD [Primary Care Provider] - Additional Instructions: please return to clinic if symptoms of infection appear for re-evaluation - Billing Disposition and Condition Condition: STABLE Disposition: Home
== END 2019-07-17 10:40 | disposition home or self-care (01) ==
LOC: UCCORT 09:02
DX: Z11.59 Encounter for screening for other viral diseases (principal); Z87.891 Personal history of nicotine dependence; Z91.09 Other allergy status, other than to drugs and biological substances; Z90.49 Acquired absence of other specified parts of digestive tract; Z88.1 Allergy status to other antibiotic agents
CPT/HCPCS: 99211; G0463